=== PATIENT | female | born 1990 | race Caucasian/White ===

== ENCOUNTER 2018-08-22 05:41 | Day surgery (SDC) | payer OTHER ==
--- NOTE | 2018-08-22 05:31 | PDGENHP ---
History and Physical History and Physical: Assessment and Plan: 1. Dysuria - Urine Culture; Future - Urine Culture 2. Endometriosis of pelvic peritoneum Kayy has untreated endometriosis. We reviewed options. She would like to proceed to robotic excision. The risk, benefits, and alternatives were reviewed and informed consent obtained. Subjective: Patient ID: Kayy Segundo is a 28 y.o. female who presents to [facility] for endometriosis. HPI For years, have had a lot of painful and irregular periods. Regular PCP put her on seasonal in 03/14, had daily spotting and pain worsened. Woke up in May and went into ER for the pelvic pain. Stabbing low right sided pain, pt is very active and typically runs ultramarathons, skiiing but couldn't get off of her bed that day. Saw Dr. Talamantes in [place] who put her on a control which did not work for her. Dr. Talamantes did the surgery, found some endometriosis. I reviewed the operative photos showing lesions in posterior cul-de-sac and bilateral sidewalls with untreated lesions at end of case. PT notes a long recovery, felt better for about 2 months, but came back in November. Currently taking norethindrone 5 mg daily. Seemed to hlep until last few days when she started spotting again. LMP 02/13 on nuvaring. Pain feels like cramps but also a terrible stabbing pain in the LRQ near appendix. Appendix hidden in bowels per the surgeon, but she did not try to find it. Menses started at 14, painful at the beginning but have gotten worse. Periods irregular, sometimes 3-4 months between menses, sometimes one for entire month. Pads and tampons, but periods are irregular in flow as well. Definitely limiting activities, would spend days on the couch. Pain radiates to back, especially on right side, will also radiate to right hip and right leg, inner thigh. Right leg feels like a muscle cramp inner thigh moving down groin. Dyspareunia, quite terrible before surgery, a little better since surgery but still not comfortable. Notes that she has a sensitive stomach and saw a ordnance handler, diet changes helped mildly. Painful bowel movements, painful gas, alternating diarrhea and constipation, mostly feel on the right side. Changes are also cyclic with menses. Does not want to be on control, if there are other options. Tried acupuncture and lidocaine injections, but didn't help. 7-8/10 when bleeding, 5/10 without bleeding. Has dropped out of every race due to the pain. Has cign[employer] for insurance. We discussed all conservative and surgical options, and Rocky would like to move forward with surgical exsision of endometriosis. In the meantime, we will increase the aygestin to 7.5 mg and she can try PT, acupuncture, topical CBD and aleve. PastMedicalHistory Past Medical History: Diagnosis Date Allergy to pollen Anemia Gastrointestinal disorder PastSurgicalHistory Past Surgical History: Procedure Laterality Date PELVIC LAPAROSCOPY CURRENT MEDICATIONS: Current Outpatient Medications Medication Sig cholecalciferol, vitamin D3, (VITAMIN D3 PO) ferrous sulfate (IRON PO) norethindrone (AYGESTIN) 5 mg tablet Take 1.5 tablets by mouth daily. VITAMIN B COMPLEX PO No current facility-administered medications for this visit. ALLERGIES: Patient has no known allergies. I have reviewed, verified and agree with the past medical, surgical, , family, social and ROS history as documented by the RN today. Objective: Vital Signs: Visit Vitals BP 108/72 Pulse 56 Temp 36.9 C (98.5 F) (Temporal) Resp 14 Ht 1.74 m (5' 8.5") Wt 69.3 kg (152 lb 12.8 oz) SpO2 96% ? No BMI 22.90 kg/m Physical Exam Gen: This is an alert, well developed woman in no distress. Neuro: She moves all extremities. Psych: She is appropriate, oriented, with normal affect. Neck: No thyroid enlargement, adenopathy, or tenderness. Lungs: Clear to ascultation, no wheezes or rales. Heart: Regular rate and rhythm without obvious murmurs. Abdomen: Soft, non-tender, without guarding, rebound, or masses. Extremities: No edema or cyanosis. Pelvic: Normal external genitalia. Non-gaping introitus, vagina without discharge, adequately estrogenized, no significant prolapse. Cervix without lesions or discharge. Uterus normal sized, mobile, tender posteriorly. The posterior cervix and uterosacral ligaments are exquisitely tender. Adnexa non- tender without enlargement. DATA: I have reviewed the pertinent medical records. TIME/COMMUNICATION: I personally spent a total of 60 minutes. Of that 40 minutes was counseling/ coordination of patient's care. See my note above for details. Aramis Smith MD Board Certified Female Pelvic Medicine and Reconstructive Surgery Director of Minimally Invasive Gynecologic Surgery, [facility] Surgeon in Minimally Invasive Gynecologic Surgery [facility] Surgeon in Robotic Surgery
[2018-08-22] MEDS ORDERED: ACETAMINOPHEN 500 MG TAB PO ONE (06:03)
[2018-08-22] MEDS ORDERED: ceFAZolin 2 GM/DEXTROSE 100 ML IV ONE (06:03)
[2018-08-22] MEDS ORDERED: PHENAZOPYRIDINE HCL 200 MG TAB PO ONE (06:03)
[2018-08-22] MEDS ORDERED: GABAPENTIN 300 MG CAP PO ONE (06:03)
[2018-08-22] MEDS ORDERED: LR 1,000 ML IV ONE (06:05)
[2018-08-22] MEDS ORDERED: BUPIVACAINE/EPI 0.5% 30 ML SDV ONE ×2 (06:56→07:35)
[2018-08-22] MEDS ORDERED: MIDAZOLAM 2 MG/2 ML VIAL IVP ONE (07:00)
--- NOTE | 2018-08-22 07:00 | PDHPUP ---
History & Physical Update H&P update statement: This history and physical update is based on an assessment of the patient which was completed after admission or registration (within 24 hours), but prior to the surgery/procedure. H&P update: H&P reviewed & patient examined, no change in patient's condition since H&P completed
--- NOTE | 2018-08-22 07:00 | PDANEPAE ---
ANE Past Medical History - Cardiovascular History Hx Hypertension: No Hx Arrhythmias: No Hx Chest Pain: No Hx Coronary Artery / Peripheral Vascular Disease: No Hx CHF / Valvular Disease: No Hx Palpitations: No - Pulmonary History Hx COPD: No Hx Asthma/Reactive Airway Disease: No Hx Recent Upper Respiratory Infection: No Hx Oxygen in Use at Home: No Hx Sleep Apnea: No Sleep Apnea Screening Result - Last Documented: Negative - Neurologic History Hx Cerebrovascular Accident: No Hx Seizures: No Hx Dementia: No - Endocrine History Hx Diabetes: No - Renal History Hx Renal Disorders: No - Liver History Hx Hepatic Disorders: No - Neurological & Psychiatric Hx Hx Neurological and Psychiatric Disorders: No - Cancer History Hx Cancer: No - Congenital Disorder History Hx Congenital Disorders: No - GI History Hx Gastrointestinal Disorders: No - Other Health History Other Health History: ANEMIA - Chronic Pain History Chronic Pain: Yes (LOWER ABD,RT SIDE) - Surgical History Prior Surgeries: REMVL ENDOMETROSIS 06/2017 TONY FRITZ ANE Review of Systems Review of Systems: - Exercise capacity METS (RN): 6 METS ANE Patient History - Allergies Allergies/Adverse Reactions: No Known Allergies Allergy (Unverified 08/07/18 11:39) - Home Medications Home medications: home medication list seen and reviewed Home Medications: Herbals/Supplements -Info Only DAILY 08/07/18 [Last Taken 2 Days Ago ~08/20/18] Ibuprofen DAILY 08/07/18 [Last Taken 08/13/18] Iron HS 08/07/18 [Last Taken 2 Days Ago ~08/20/18] Norethindrone HS 08/07/18 [Last Taken 2 Days Ago ~08/20/18] - NPO status NPO Status: no food or drink >8 hours NPO Since - Liquids (Date): 08/22/18 NPO Since - Liquids (Time): 05:15 NPO Since - Solids (Date): 08/21/18 NPO Since - Solids (Time): 23:00 - Anes Hx Anes Hx: no prior problems - Smoking Hx Smoking Status: Never smoked ANE Labs/Vital Signs - Vital Signs Vital Signs: reviewed preoperatively; see RN documention for details Blood Pressure: 112/64 Heart Rate: 57 Respiratory Rate: 16 O2 Sat (%): 96 Height: 175.26 cm Weight: 61.235 kg ANE Physical Exam - Airway Neck exam: FROM Mallampati Score: Class 1 Mouth exam: normal dental/mouth exam - Pulmonary Pulmonary: clear to auscultation - Cardiovascular Cardiovascular: regular rate and rhythym - ASA Status ASA Status: II ANE Anesthesia Plan Anesthesia Plan: general endotracheal anesthesia
[2018-08-22] MEDS ORDERED: PROPOFOL 200 MG/20 ML VIAL ONE (07:03)
[2018-08-22] MEDS ORDERED: fentaNYL 100 MCG/2 ML INJ ONE (07:03)
[2018-08-22] MEDS ORDERED: ROCURONIUM 50 MG/5 ML VIAL ONE (07:07)
[2018-08-22] MEDS ORDERED: DEXAMETHASONE 4 MG/ML VIAL ONE (07:28)
[2018-08-22] MEDS ORDERED: ONDANSETRON 4 MG/2 ML VIAL ONE ×2 (07:29→11:21)
[2018-08-22] MEDS ORDERED: KETOROLAC 30 MG/1 ML SDV ONE (07:29)
[2018-08-22] MEDS ORDERED: HYDROmorphONE/DILAUDID 2 MG/ML INJ ONE (07:34)
[2018-08-22] MEDS ORDERED: oxyCODONE IR 5 MG TAB PO PRN (08:32)
[2018-08-22] MEDS ORDERED: DEXAMETHASONE 4 MG/ML VIAL IVP PRN (08:32)
[2018-08-22] MEDS ORDERED: METOCLOPRAMIDE 10 MG/2 ML VIAL IVP PRN (08:32)
[2018-08-22] MEDS ORDERED: ONDANSETRON 4 MG/2 ML VIAL IVP PRN (08:32)
[2018-08-22] MEDS ORDERED: fentaNYL 100 MCG/2 ML INJ IVP PRN (08:32)
[2018-08-22] MEDS ORDERED: MEPERIDINE 25 MG/0.5 ML AMP IVP PRN (08:32)
[2018-08-22] MEDS ORDERED: ALBUTEROL 3 ML DEYVIAL IH PRN (08:32)
[2018-08-22] MEDS ORDERED: PROMETHAZINE HCL 25 MG/ML INJ IVP PRN (08:32)
[2018-08-22] MEDS ORDERED: HYDROmorphONE/DILAUDID 2 MG/ML INJ IVP PRN (08:32)
[2018-08-22] MEDS ORDERED: LR 500 ML IV PRN (08:32)
[2018-08-22] MEDS ORDERED: DIAZEPAM 5 MG/ML 1 ML SYR IVP PRN (08:32)
[2018-08-22] MEDS ORDERED: NALOXONE HCL 0.4 MG/ML INJ IVP PRN (08:32)
--- NOTE | 2018-08-22 09:11 | POSTOPPROG ---
Post Op Note Date of Operation: 08/22/18 Surgeon: Aramis Smith Soft Work Wrapper Layer And Examiner: Shonna Vera Anesthesiologist: Shirlene Anesthesia: GET(General Endotracheal) Pre-op Diagnosis: Endometriosis Post-op Diagnosis: Same Procedure: Robotic excision of endo, bilat ureterolysis, appy, cysto Inf/Abcess present in the surg proc area at time of surgery?: No EBL: Minimal Complications: None
--- NOTE | 2018-08-22 09:26 | POSTANESTH ---
Post Anesthetic Evaluation Cardiovascular Status: Normal, Stable Respiratory Status: Normal, Stable Level of Consciousness/Mental Status: Can Participate in Eval Pain Control: Adequate, Prn Tx Ordered Nausea/Vomiting Control: Adequate, Prn Tx Ordered Complications Possibly Related to Anesthesia: None Noted
[2018-08-22] MEDS ORDERED: oxyCODONE IR 5 MG TAB ONE (09:39)
--- NOTE | 2018-08-22 10:11 | GOP ---
[f rep st] OPERATIVE REPORT DATE OF OPERATION: 08/22/2018 SURGEON: Aramis Smith MD SPICE ROOM WORKER: Shonna Vera CFA. ANESTHESIA: General. PREOPERATIVE DIAGNOSIS: 1. Dysmenorrhea. 2. Endometriosis. 3. Mid cycle pain. 4. Urinary frequency. POSTOPERATIVE DIAGNOSIS: 1. Dysmenorrhea. 2. Endometriosis. 3. Mid cycle pain. 4. Urinary frequency. 5. Fecalith in the appendix. PROCEDURE PERFORMED: 1. Robotic excision of endometriosis in anterior posterior cul-de-sacs, bilateral pelvic side girard. 2. Bilateral ureterolysis. 3. Excision of rectal lesions. 4. Bilateral ovariopexy. 5. Cystoscopy. 6. Appendectomy by Dr. Curtis. FINDINGS: The upper abdomen was unremarkable. There was no endometriosis on either diaphragm, liver , stomach, gallbladder, or upper abdominal bowel. She had some slight scarring in the central portio n of the anterior right lobe of the liver. This did not look classic for a hemangioma. It also did not look like a neoplasm. Within the pelvis, there was speckled endometriosis in the anterior cul-de -sac. She had lesions on the distal rectum and posterior cul-de-sac. There was endometriosis overly ing both pelvic sidewalls, the ovarian fossa, uterosacral ligaments, as well as overlying the ureters . She had several lesions on the posterior serosal surface of the uterus. The ovaries and tubes wer e free of disease. She appeared to have a phlebolith or a distal third of the appendix. Dr. Ever shaffer General surgery was consulted who performed an appendectomy. SPECIMENS: 1. Pelvic peritoneum with endometriosis. 2. Rectal lesion. 1. Appendix. 3. ESTIMATED BLOOD LOSS: Scant. DESCRIPTION OF PROCEDURE: The patient was taken to the operating room where she was identified. Gen eral anesthesia was administered and found to be adequate. She was placed in the lithotomy position and prepared and draped in normal sterile fashion. A Duke catheter was placed in her bladder. A Hu lka tenaculum was placed in the uterus for manipulation. An 8 mm infraumbilical incision was made with a scalpel. The Veress needle with CO2 gas flowing was advanced into the peritoneal cavity. The abdomen was then insufflated with carbon dioxide gas. The 8 mm trocar, followed by the laparoscope were then inserted. The upper abdomen was unremarkable. Tw o lateral ports were placed in the right, 1 on the left under direct visualization. She then was jazmín juana in Trendelenburg position and the Da Jad robot docked on the left side. The instruments were b rought into the abdominal cavity under direct visualization. Findings were as noted above. The anterior cul-de-sac peritoneum was completely excised. The lesions on the serosal surface of the uterus were treated. A bilateral ovariopexy was then performed by attaching each ovary to the ipsil ateral round ligaments near the internal inguinal ring with 3-0 Vicryl Rapide suture. The lesions on the distal rectum were excised. These extended into the muscularis. The entire posterior cul-de-sa c peritoneum from the distal rectum up to the cervix and laterally to the uterosacral ligaments was t hen completely excised. She required a bilateral ureterolysis given endometriosis overlying both ure ters. The peritoneum at the pelvic brims was incised. The ureters were gently dissected free and la teralized off the overlying peritoneum and endometriosis from the pelvic brim down to the uterine art eries. Once this was accomplished, the entire pelvic sidewall peritoneum was completely excised. Th e pelvis was then irrigated with sterile saline, and hemostasis was present. Dr. Curtis of [facility] then performed an appendectomy. Please see his dictated note. During the dissection of the po sterior cul-de-sac peritoneum up to the cervix, I had to enter the posterior vagina. The specimens w ere removed through this opening. It was then closed with a running 2-0 Vicryl suture. The robot was then undocked. The fascia was closed with 0 Vicryl, skin with 4-0 Monocryl. Cystoscopy was then performed. Both ureters had vigorous jets of urine. There was no evidence of en dometriosis or bladder injury seen. There was some speckled lesions somewhat concerning for Hunner's ulcers. Photographs were taken. Anesthesia was then reversed, and the patient taken the PACU awake , in stable condition. COMPLICATIONS: None. DISPOSITION: Patient stable to PACU. /[id number]/MODL
[2018-08-22 11:44] VITALS: BP 104/59
--- NOTE | 2018-08-22 12:01 | GOP ---
[f rep st] OPERATIVE REPORT DATE OF OPERATION: 08/22/2018 SURGEON: Mahin Curtis MD PREOPERATIVE DIAGNOSIS: POSTOPERATIVE DIAGNOSIS: PROCEDURE PERFORMED: The patient was under general anesthesia and already with a pneumoperitoneum from the robot. Appendix was elevated up. The mesoappendix was divided with electrocautery until the base was skeletonized. The base was then divided with the Endo HOLLIS stapler through the robotic port and the specimen was free. It was placed in the vaginal opening for extraction later through the vagina. She tolerated the procedure quite well. Blood loss from that portion of the procedure was zero. There were no complications. FINDINGS: 2 CM APPENDICOLITHS IN OTHERWISE NORMAL APPENDIX DESCRIPTION OF PROCEDURE: The patient is a 28-year-old female undergoing surgery by Dr. Aramis Smith for endometriosis. Her appendix was found to be abnormal with a very large appendicolith stuck in the appendix. It was not particularly inflamed and there was no evidence of endometriosis, however, it was felt that electively it would worth the removal of this large appendicolith. I was consulted for that. /[id number]/MODL MTDD
== END 2018-08-22 11:43 | disposition home or self-care (01) ==
LOC: FSGY 05:41
PROVIDERS: ATTEND Obstetrics & Gynecology
PROC: 0UBF4ZZ Excision of Cul-de-sac, Percutaneous Endoscopic Approach (ICD-10-PCS; principal; 2018-08-22 07:15)
PROC: 0US24ZZ Reposition Bilateral Ovaries, Percutaneous Endoscopic Approach (ICD-10-PCS; principal; 2018-08-22 07:15)
PROC: 0DTJ8ZZ Resection of Appendix, Via Natural or Artificial Opening Endoscopic (ICD-10-PCS; principal; 2018-08-22 07:15)
PROC: 0DBP4ZZ Excision of Rectum, Percutaneous Endoscopic Approach (ICD-10-PCS; principal; 2018-08-22 07:15)
PROC: 8E0W4CZ Robotic Assisted Procedure of Trunk Region, Percutaneous Endoscopic Approach (ICD-10-PCS; principal; 2018-08-22 07:15)
DX: N94.6 Dysmenorrhea, unspecified (principal); N80.3 Endometriosis of pelvic peritoneum; K38.1 Appendicular concretions; R30.0 Dysuria; N94.10 Unspecified dyspareunia; R35.0 Frequency of micturition; N92.6 Irregular menstruation, unspecified
CPT/HCPCS: J0690; J1100; J1170; J1885; J2250; J2405; J2704; J3010